=== PATIENT | female | born 1940 | race Caucasian/White ===

== ENCOUNTER 2021-07-17 14:08 | Inpatient (IN) ==
[2021-07-17] MEDS ORDERED: Iodixanol (CONTRAST) 320 MG/ML 100 ML SDV IV ONE ×2 (15:43→21:03)
[2021-07-17] MEDS ORDERED: Vancomycin 1,500 MG in NS 0.9% 250 ml 250 ML IVPB ONE (20:57)
[2021-07-17] MEDS ORDERED: cefTRIAXone 1 gm/50 mL D5W 1 GM/50 ML BAG IV ONE (20:57)
[2021-07-17 21:10] LABS: ABS Lymphocytes 0.5 10^3/ul (1.0-4.8); ABS Monocytes 0.4 10^3/ul (0-0.8); ABS Neutrophils 5.3 10^3/ul (1.5-7.7); Eosinophil % 0.5 %; Hematocrit 41 % (35-47); Lymphocyte % 8.4 %; Mean Corpuscular HGB Conc 34 g/dL (31-36); Mean Corpuscular Hemoglobin 33 pg (27-31); Mean Corpuscular Volume 96 fL (80-97); Mean Platelet Volume 8.3 fL (7.4-10.4); Platelet Count 108 10^3/uL (150-450); Red Blood Count 4.29 10^6 /uL (3.70-4.87); Red Cell Distribution Width 14 % (10-15); White Blood Count 6.3 10^3/uL (3.5-10.8)
[2021-07-17 21:21] LABS: INR 1.2 (0.86-1.15)
[2021-07-17 22:12] LABS: Albumin/Globulin Ratio 0.9 (1-3); C Reactive Protein 340.76 mg/L (<8.01); Calcium 8.3 mg/dL (8.6-10.3); Globulin 3.4 g/dL (2-4); Potassium 4.4 mmol/L (3.5-5.0); Total Bilirubin 0.9 mg/dL (0.2-1.0); Total Protein 6.4 g/dL (6.4-8.9)
[2021-07-17 22:28] LABS: High Sensitivity Troponin 1 Hr 16 pg/mL (<15)
[2021-07-18] MEDS: Enoxaparin 40 MG/0.4 ML SYR SUBCUT SCH (03:04)
[2021-07-18 08:09] LABS: ABS Lymphocytes 0.5 10^3/ul (1.0-4.8); ABS Monocytes 0.3 10^3/ul (0-0.8); ABS Neutrophils 5.9 10^3/ul (1.5-7.7); Eosinophil % 0.6 %; Hematocrit 42 % (35-47); Hemoglobin 14.4 g/dL (12.0-16.0); Lymphocyte % 7.5 %; Mean Corpuscular HGB Conc 34 g/dL (31-36); Mean Corpuscular Hemoglobin 33 pg (27-31); Mean Corpuscular Volume 97 fL (80-97); Mean Platelet Volume 8.7 fL (7.4-10.4); Platelet Count 142 10^3/uL (150-450); Red Blood Count 4.39 10^6 /uL (3.70-4.87); Red Cell Distribution Width 14 % (10-15); White Blood Count 6.8 10^3/uL (3.5-10.8)
[2021-07-18 08:53] LABS: C Reactive Protein 350.04 mg/L (<8.01); Calcium 8.7 mg/dL (8.6-10.3); Potassium 4.5 mmol/L (3.5-5.0)
[2021-07-18] MEDS: Aspirin EC 81 mg TAB.EC (enteric coated) PO SCH (11:03)
[2021-07-18 21:51] LABS: Ferritin 364.6 ng/mL (11-307)
[2021-07-19 06:57] LABS: ABS Lymphocytes 0.4 10^3/ul (1.0-4.8); ABS Monocytes 0.2 10^3/ul (0-0.8); ABS Neutrophils 3.4 10^3/ul (1.5-7.7); Eosinophil % 0.1 %; Hematocrit 38 % (35-47); Mean Corpuscular HGB Conc 34 g/dL (31-36); Mean Corpuscular Hemoglobin 33 pg (27-31); Mean Corpuscular Volume 97 fL (80-97); Mean Platelet Volume 8.2 fL (7.4-10.4); Platelet Count 128 10^3/uL (150-450); Red Blood Count 3.92 10^6 /uL (3.70-4.87); Red Cell Distribution Width 14 % (10-15)
[2021-07-19 07:15] LABS: Magnesium 2.2 mg/dL (1.9-2.7); Potassium 4.4 mmol/L (3.5-5.0); eGFR CKD-EPI 90.5 (>60)
[2021-07-19] MEDS: Aspirin EC 81 mg TAB.EC (enteric coated) PO SCH (08:29)
[2021-07-19] MEDS: Enoxaparin 40 MG/0.4 ML SYR SUBCUT SCH (08:30)
[2021-07-19] MEDS ORDERED: Iohexol 300 (CONTRAST) 10 ML SDV IV ONE (10:10)
[2021-07-19] MEDS ORDERED: Iodixanol (CONTRAST) 320 MG/ML 100 ML SDV IV ONE (10:19)
[2021-07-19 13:19] VITALS: BP 119/52
[2021-07-20 00:37] LABS: Anaplasma phagocytophilum Negative (Negative); B. miyamotoi PCR, B Negative (Negative); Babesia divergens/MO-1 Negative (Negative); Babesia ducani Negative (Negative); Ehrlichia chaffeensis Negative (Negative); Ehrlichia ewingii/canis Negative (Negative); Ehrlichia muris eauclairensis Negative (Negative)
[2021-07-21 16:39] LABS: Immunoglobulin A 890 mg/dL (61 - 356)
== END 2021-07-19 15:15 | disposition home or self-care (01) | DRG 546 ==
LOC: ED 14:08 → EDHOLD 07-18 00:31 → SUATTDRO 07-18 00:31 → MEDTELE 07-18 07:32
PROVIDERS: ADMIT Hospitalist; ATTEND Internal Medicine

== ENCOUNTER 2022-06-09 06:38 | Observation (INO) ==
[~2022-06-09 06:38] MED LIST: Buffered Lidocaine 1% SYRIN 1 ml INTRADERM ONE; Famotidine IV 10 MG/ML 2 ml VIAL (20 mg) IV ONE; Lactated Ringers 1000 ml BAG 1,000 ML IV SCH
[2022-06-09] MEDS ORDERED: ceFAZolin 2 GM in NS PREMIX 2 GM/100 ML BAG IVPB ONE (07:38)
[2022-06-09] MEDS ORDERED: Famotidine IV 10 MG/ML 2 ml VIAL (20 mg) ONE (07:39)
[2022-06-09] MEDS ORDERED: fentaNYL 100 mcg/2 ml 50 MCG/ML VIAL ONE ×3 (08:29→13:57)
[2022-06-09] MEDS ORDERED: Midazolam 2 mg/2 ml VIAL 1 mg/ml 2 ml VIAL (2 mg) ONE (08:29)
[2022-06-09] MEDS ORDERED: ROPIVACAINE 5 MG/ML 30 ML BTL (0.5%) ONE ×2 (08:35→09:23)
[2022-06-09] MEDS ORDERED: Phenylephrine IV 10 MG/ML 1 ml VIAL ONE (08:54)
[2022-06-09] MEDS ORDERED: Lidocaine 2% PF 5 ML VIAL ONE (08:54)
[2022-06-09] MEDS ORDERED: Bupivacaine 0.5% PF 10 ML SDV VIAL INJ ONE (08:55)
[2022-06-09] MEDS ORDERED: Naloxone 0.4 mg VIAL 0.4 mg/ml 1 ml VIAL IV PRN (10:04)
[2022-06-09] MEDS ORDERED: Ondansetron 4 mg VIAL 2 MG/ML 2 ml VIAL IV PRN ×2 (10:04→12:11)
[2022-06-09] MEDS ORDERED: Dexamethasone IV 4 MG/ML VIAL 1 ml VIAL ONE (10:27)
[2022-06-09] MEDS ORDERED: Acetaminophen IV 1 GM/100ML 1,000 MG/100 ML BAG IV ONE ×3 (11:56→13:57)
[2022-06-09] MEDS ORDERED: Magnesium Hydroxide LIQ 30 ML UDC PO PRN (12:11)
[2022-06-09] MEDS ORDERED: Lactulose 30 ml UDC PO PRN (12:11)
[2022-06-09] MEDS ORDERED: Morphine 2 MG/ML SYRINGE IV PRN (12:11)
[2022-06-09] MEDS ORDERED: Ondansetron ODT 4 mg TAB 4 MG TAB PO PRN (12:11)
[2022-06-09] MEDS ORDERED: Lactated Ringers 1000 ml BAG 1,000 ML IV SCH (13:00)
[2022-06-09] MEDS ORDERED: fentaNYL 100 mcg/2 ml 50 MCG/ML VIAL IV PRN (13:57)
[2022-06-09] MEDS ORDERED: Rocuronium 50 mg VIAL 10 mg/ml 5 ml VIAL (50 mg) ONE (15:03)
[2022-06-09 15:15] LABS: High Sensitivity Troponin 1 Hr 10 pg/mL (<15)
[2022-06-09 17:28] LABS: High Sensitivity Troponin 3 Hr 7 pg/mL (<15)
[2022-06-09] MEDS: ceFAZolin 1 GM ADVAN 1 GM in NS 0.9% 50 ML 50 ML IVPB SCH (18:03)
[2022-06-09] MEDS: Magnesium Hydroxide LIQ 30 ML UDC PO SCH (21:45)
[2022-06-10] MEDS: ceFAZolin 1 GM ADVAN 1 GM in NS 0.9% 50 ML 50 ML IVPB SCH ×2 (02:02→09:35)
[2022-06-10 06:05] LABS: Hematocrit 40 % (35-47); Hemoglobin 13.7 g/dL (12.0-16.0); Mean Platelet Volume 8.2 fL (7.4-10.4); Platelet Count 173 10^3/uL (150-450)
[2022-06-10 06:46] LABS: Calcium 9.1 mg/dL (8.6-10.3); Creatinine, Serum 0.76 mg/dL (0.51-0.95); Potassium 4.4 mmol/L (3.5-5.0); eGFR CKD-EPI 79.2 (>60)
[2022-06-10] MEDS: Magnesium Hydroxide LIQ 30 ML UDC PO SCH (12:22)
[2022-06-10] MEDS: Vitamin THERAPEUTIC TAB PO SCH (12:35)
[2022-06-11 06:13] LABS: Hematocrit 38 % (35-47); Hemoglobin 12.7 g/dL (12.0-16.0); Mean Platelet Volume 8.2 fL (7.4-10.4); Platelet Count 158 10^3/uL (150-450)
[2022-06-11] MEDS: Vitamin THERAPEUTIC TAB PO SCH (09:02)
[2022-06-11 13:09] VITALS: BP 103/60
== END 2022-06-11 13:30 | disposition home or self-care (01) ==
LOC: INTOOBSV 06:38 → AA 06:38 → SSU 12:11
PROVIDERS: ADMIT Orthopaedic Surgery Adult Reconstructive Orthopaedic Surgery; ATTEND Orthopaedic Surgery Adult Reconstructive Orthopaedic Surgery